=== PATIENT | male | born 1980 | race Caucasian/White ===

== ENCOUNTER → 2017-06-27 | Outpatient (CLI) | payer BC ==
--- NOTE | 2017-06-27 12:25 | ECHOF ---
Referral Reason:Chest pain R07.9 MEASUREMENTS -------- HEIGHT: 182.9 cm WEIGHT: 97.5 kg BP: RVIDd: 3.2 cm (< 3.3) IVSd: 0.8 cm (0.6 - 1.1) LVIDd: 4.4 cm (3.9 - 5.3) LVPWd: 1.0 cm (0.6 - 1.1) IVSs: 2.1 cm LVIDs: 2.1 cm LVPWs: 1.8 cm Ao Diam: 3.4 cm (2.0 - 3.7) AV Cusp: 2.3 cm (1.5 - 2.6) LA Diam: 3.0 cm (2.7 - 3.8) MV EXCURSION: 24.642 mm (> 18.000) MV EF SLOPE: 187 mm/s (70 - 150) EPSS: 0.3 cm MV E Cristian: 0.84 m/s MV DecT: 209 ms MV A Cristian: 0.81 m/s MV E/A Ratio: 1.04 RAP: 5.00 mmHg RVSP: 13.19 mmHg FINDINGS -------- Sinus rhythm. This was a technically good study. The left ventricular size is normal. Left ventricular wall thickness is normal. Overall left vent ricular systolic function is normal with, an EF between 60 - 65 %. The right ventricle is normal in size and function. The left atrium is normal in size. The right atrium is normal in size. The aortic valve is trileaflet, and appears structurally normal. No aortic stenosis or regurgitation. There is trace mitral regurgitation. Mild tricuspid regurgitation present. The right ventricular systolic pressure, as measured by Doppl er, is 13.19mmHg. Pulmonic valve appears structurally normal. The aortic root size is normal. Normal inferior vena cava with normal inspiratory collapse consistent with estimated right atrial pre ssure of 5 mmHg. The pericardium is normal. CONCLUSIONS -------- 1. Sinus rhythm. 2. This was a technically good study. 3. The left ventricular size is normal. 4. Left ventricular wall thickness is normal. 5. Overall left ventricular systolic function is normal with, an EF between 60 - 65 %. 6. The right ventricle is normal in size and function. 7. The left atrium is normal in size. 8. The right atrium is normal in size. 9. The aortic valve is trileaflet, and appears structurally normal. No aortic stenosis or regurgitati on. 10. There is trace mitral regurgitation. 11. Mild tricuspid regurgitation present. 12. The right ventricular systolic pressure, as measured by Doppler, is 13.19mmHg. 13. Pulmonic valve appears structurally normal. 14. The aortic root size is normal. 15. Normal inferior vena cava with normal inspiratory collapse consistent with estimated right atrial pressure of 5 mmHg. 16. The pericardium is normal. SHEET METAL TECHNICIAN: Jeanna Phillips RDCS
--- NOTE | 2017-06-27 12:32 | EST ---
EXERCISE STRESS DATE OF SERVICE: 06/27/2017 AGE: 36 SEX: Male HT: 6'2" WT: 217 pounds PROTOCOL: Silver STAGE: III DURATION OF EXERCISE: 11-1/2 minutes HEART RATE REST: 65 BLOOD PRESSURE REST: 123/80 MAXIMUM HEART RATE ACHIEVED: 164 MAXIMUM BLOOD PRESSURE: 184/55 85% MPHR: 156 100% MPHR: 183 METS: 12.1 INDICATIONS: Chest pain. CLINICAL INFORMATION: Baseline EKG revealed normal sinus rhythm without significant ST-T changes. Patient walked on a standard Silver protocol for 11-1/2 minutes achieved a maximum heart rate of 164 beats per minute which is more than 85% of predicted maximal. He developed some fatigue and shortness of breath and also had some chest tightness, which seemed musculoskeletal. EKG did not reveal any ST-segment changes to indicate ischemia. There was no angina or arrhythmia. By EKG criteria, this is a negative stress test with excellent exercise capacity. TEETEE / SURJITN: [id number] /
== END ==
LOC: RADNMMAIN 10:50
PROVIDERS: ATTEND Family Medicine
DX: R07.9 Chest pain, unspecified (principal)
CPT/HCPCS: 93017; 93306

== ENCOUNTER → 2018-08-11 | Outpatient (CLI) | payer BC, OTHER ==
--- NOTE | 2018-08-11 16:00 | US ---
EXAMINATION TYPE: US abdomen complete DATE OF EXAM: 08/11/2018 COMPARISON: NONE CLINICAL HISTORY: R94.5 elevated liver function tests. Abnormal labs. No pain. NPO. EXAM MEASUREMENTS: Liver Length: 17.1 cm Gallbladder Wall: 0.1 cm CBD: 0.4 cm Spleen: 11.6 cm Right Kidney: 10.3 x 4.8 x 4.5 cm Left Kidney: 14.5 x 4.8 x 5.2 cm Limited exam due to overlying bowel gas Pancreas: Tail obscured by overlying bowel gas Liver: wnl Gallbladder: wnl Evidence for sonographic Rosario's sign: neg CBD: wnl Spleen: wnl Right Kidney: wnl Left Kidney: Appears larger in size compared to contralateral kidney Upper IVC: wnl Abd Aorta: Proximal and Mid portion obscured by overlying bowel gas. IMPRESSION: 1. Visualized abdomen ultrasound is unremarkable.
== END ==
LOC: RADUSWWP 08:13
PROVIDERS: ATTEND Family Medicine
DX: R94.5 Abnormal results of liver function studies (principal)
CPT/HCPCS: 76700

== ENCOUNTER 2019-03-27 12:54 | Emergency (ER) | payer BC, OTHER ==
--- NOTE | 2019-03-27 13:49 | XR ---
EXAMINATION TYPE: XR chest 2V DATE OF EXAM ORDERED: 03/27/2019 HISTORY: cough. REFERENCE: None. FINDINGS: The lungs are clear. Pleural spaces are clear. Heart size is normal. IMPRESSION: NORMAL CHEST.
--- NOTE | 2019-03-27 13:59 | ED ---
URI HPI - General Chief Complaint: Upper Respiratory Infection Stated Complaint: Upper Resp Time Seen by Provider: 03/27/19 13:20 Source: patient, RN notes reviewed Mode of arrival: ambulatory Limitations: no limitations - History of Present Illness Initial Comments: 38-year-old male presents emergency Department chief complaint of cough congestion bodyaches. Patient states he has increasing symptoms. Patient states that he is having productive cough, severe nasal congestion and pressure. No relief with [id number] topical medications no sick contacts. Patient believes this is caused by being out what in weather. Patient denies any known lung disorders. Patient denies any ear pain or. He admits to mild sore throat. - Related Data Previous Rx's Medication Instructions Recorded Amoxicillin/Potassium Clav 1 tab PO Q12HR #20 tab 03/27/19 [Augmentin 875-125 Tablet] Allergies Allergy/AdvReac Type Severity Reaction Status Date / Time No Known Allergies Allergy Verified 03/27/19 13:18 Review of Systems ROS Statement: Those systems with pertinent positive or pertinent negative responses have been documented in the HPI. ROS Other: All systems not noted in ROS Statement are negative. Past Medical History Past Medical History: No Reported History History of Any Multi-Drug Resistant Organisms: None Reported Past Surgical History: No Surgical Hx Reported Past Psychological History: No Psychological Hx Reported Smoking Status: Never smoker Past Alcohol Use History: None Reported Past Drug Use History: None Reported General Exam Limitations: no limitations General appearance: alert, in no apparent distress Head exam: Present: atraumatic, normocephalic, normal inspection Eye exam: Present: normal appearance, PERRL, EOMI. Absent: scleral icterus, conjunctival injection, periorbital swelling ENT exam: Present: normal exam, mucous membranes moist. Absent: normal oropharynx (Posterior drainage), mucous membranes dry Neck exam: Present: normal inspection, full ROM. Absent: tenderness, meningismus, lymphadenopathy Respiratory exam: Present: normal lung sounds bilaterally. Absent: respiratory distress, wheezes, rales, rhonchi, stridor Cardiovascular Exam: Present: regular rate, normal rhythm, normal heart sounds. Absent: systolic murmur, diastolic murmur, rubs, gallop, clicks GI/Abdominal exam: Present: soft, normal bowel sounds. Absent: distended, tenderness, guarding, rebound, rigid Skin exam: Present: warm, dry, intact, normal color. Absent: rash Course Vital Signs 03/27/19 03/27/19 03/27/19 13:16 14:03 15:06 Temperature 98.3 F Pulse Rate 79 Respiratory 18 16 18 Rate Blood Pressure 110/71 O2 Sat by Pulse 98 Oximetry Medical Decision Making - Medical Decision Making Chest x-rays unremarkable influenza negative. Patient treated for acute sinusitis. Patient be discharged advised return parameters were discussed. - Lab Data Lab Results 03/27/19 Range/Units 14:00 Influenza Type A RNA Not Detected (Not Detectd) Influenza Type B (PCR) Not Detected (Not Detectd) Disposition Clinical Impression: Sinusitis, Bronchitis Disposition: HOME SELF-CARE Condition: Stable Instructions (If sedation given, give patient instructions): Upper Respiratory Infection (ED) Additional Instructions: Please return to the Emergency Department if symptoms worsen or any other concerns. Prescriptions: Amoxicillin/Potassium Clav [Augmentin 875-125 Tablet] 1 tab PO Q12HR #20 tab Is patient prescribed a controlled substance at d/c from ED?: No Referrals: Mack Geronimo III, MD [Primary Care Provider] - 1-2 days Time of Disposition: 15:11
[2019-03-27 15:29] VITALS: BP 129/62; PULSE 72; RESP 16; TEMP 98.6
== END 2019-03-27 15:25 | disposition home or self-care (01) ==
LOC: EC 12:54
DX: J40 Bronchitis, not specified as acute or chronic (principal); J01.90 Acute sinusitis, unspecified
CPT/HCPCS: 71046; 87502; 99283